=== PATIENT | female | born 1970 | race Caucasian/White ===

== ENCOUNTER 2023-08-15 14:40 | Outpatient (CLI) | payer BC | END 2023-08-15 14:41 | disposition home or self-care (01) | LOC: CSHMAMMO 14:40 | PROVIDERS: ATTEND Internal Medicine Rheumatology | DX: Z13.820 Encounter for screening for osteoporosis (principal); Z78.0 Asymptomatic menopausal state | CPT/HCPCS: 77080 ==

== ENCOUNTER 2025-01-14 13:48 | Outpatient (CLI) | payer BC | END 2025-01-14 13:49 | disposition home or self-care (01) | LOC: CSHMAMMO 13:48 | PROVIDERS: ATTEND Physician Assistant | DX: N64.4 Mastodynia (principal) | CPT/HCPCS: 77066; G0279 ==